=== PATIENT | female | born 1965 | race Native Hawaiian/Other Pacific Islander ===

== ENCOUNTER 2018-09-04 08:32 | Day surgery (SDC) | payer OTHER ==
[2018-09-04 09:13] LABS: POTASSIUM 3.6 mmol/L (3.6-5.2)
[2018-09-04 09:22] LABS: PLATELET COUNT 289 K/uL (152-353)
== END 2018-09-04 14:25 | disposition home or self-care (01) ==
LOC: OR 08:32
PROVIDERS: Student in an Organized Health Care Education/Training Program
PROC: 0FT44ZZ Resection of Gallbladder, Percutaneous Endoscopic Approach (ICD-10-PCS; principal; 2018-09-04)
DX: K80.11 Calculus of gallbladder with chronic cholecystitis with obstruction (principal)
CPT/HCPCS: 80053; 85027; J0132; J0330; J0690; J1100; J1170; J1885; J2001; J2250; J2550; J2704; J2765; J3010; J3490

== ENCOUNTER 2018-12-19 09:45 | Outpatient (CLI) | payer OTHER ==
[2018-12-19 10:30] LABS: PLATELET COUNT 300 K/uL (152-353)
== END 2018-12-19 20:04 | disposition home or self-care (01) ==
LOC: LABW 09:45
PROVIDERS: Nurse Practitioner
DX: R53.83 Other fatigue (principal); E78.00 Pure hypercholesterolemia, unspecified; E55.9 Vitamin D deficiency, unspecified
CPT/HCPCS: 36415; 80061; 82306; 84443; 85027